=== PATIENT | male | born 1995 | race Two or more races ===

== ENCOUNTER 2022-03-09 01:12 | Emergency (ER) | payer MEDICAID ==
[~2022-03-09] VITALS: Ht 177.8 cm; Wt 90.7 kg
[2022-03-09 02:29] VITALS: BP 141/85
== END 2022-03-09 03:02 | disposition home or self-care (01) ==
LOC: ER 01:21
DX: Z71.1 Person with feared health complaint in whom no diagnosis is made (principal); F17.200 Nicotine dependence, unspecified, uncomplicated; Z60.2 Problems related to living alone